=== PATIENT | female | born 1960 | race Caucasian/White ===

== ENCOUNTER → 2019-05-07 14:59 | Outpatient (CLI) | payer OTHER, SELFPAY ==
--- NOTE | ~2019-05-07 | CT_ITS ---
EXAMINATION: CT abdomen pelvis wo/w con DATE: 05/07/2019 15:51 INDICATION: Microscopic hematuria TECHNIQUE: Computed tomography (CT) of the abdomen and pelvis was performed without and with 130 cc O mnipaque 350 intravenous contrast. The dose-length product was 1127.86 mGy-cm. Automated exposure con trol and iterative reconstruction technique were employed. COMPARISON: CT dated 06/18/2014 FINDINGS: Lung bases are unremarkable. No significant pleural or pericardial effusion. Small hiatal h ernia. There is atherosclerosis. No evidence for aneurysm. No lymphadenopathy. Status post cholecystectomy. The liver, spleen, pancreas, adrenal glands and right kidney are unremar kable for noncontrast CT. There is a punctate 1-2 mm nonobstructing left renal stone. No definite ure teral stones or hydronephrosis. Ureters are normal in course and caliber. The bladder is unremarkable . Nonobstructive bowel gas pattern. No free air or free fluid. No abnormal pelvic masses or fluid colle ctions. Mild lumbar spondylosis. IMPRESSION: 1. Nonobstructing 1-2 mm left renal stone. 2: Small hiatal hernia. Reviewed, dictated and finalized at location A. [employer]
== END ==
DX: N20.0 Calculus of kidney (principal); K44.9 Diaphragmatic hernia without obstruction or gangrene; R31.21 Asymptomatic microscopic hematuria
CPT/HCPCS: 74178; Q9967

== ENCOUNTER → 2019-05-28 06:46 | Outpatient (CLI) | payer OTHER, SELFPAY ==
--- NOTE | ~2019-05-28 | MM_ITS ---
EXAMINATION: MM screening [facility] BI w soy HISTORY: Screening mammogram TECHNIQUE: Craniocaudal and mediolateral oblique 3-D tomosynthesis images were obtained and synthetic 2-D images were generated. CAD analysis was submitted and interpreted. COMPARISON: 04/11/2018, 04/02/2017, 02/09/2016 BREAST PARENCHYMAL COMPOSITION: There are scattered areas of fibroglandular density. FINDINGS: There is no evidence of suspicious mass, calcification, or architectural distortion to sugg est malignancy in either breast. There has been no suspicious interval change. IMPRESSION: 1. No mammographic evidence of malignancy. 2. Recommend routine screening mammography in one year. BI-RADS Category 1: Negative Reviewed, dictated and finalized at location A.
== END ==
PROVIDERS: Visit Provider Advanced Practice Midwife
DX: Z12.31 Encounter for screening mammogram for malignant neoplasm of breast (principal)
CPT/HCPCS: 77063; 77067

== ENCOUNTER → 2020-06-30 09:59 | Outpatient (CLI) | payer OTHER, SELFPAY ==
--- NOTE | ~2020-06-30 | MM_ITS ---
EXAMINATION: MM screening [facility] BI w soy HISTORY: Screening TECHNIQUE: Craniocaudal and mediolateral oblique 3-D tomosynthesis images were obtained and synthetic 2-D images were generated. CAD analysis was submitted and interpreted. COMPARISON: Comparison to multiple prior studies sequentially, with oldest reviewed study dated 12/17. BREAST PARENCHYMAL COMPOSITION: There are scattered areas of fibroglandular density. FINDINGS: There is no evidence of suspicious mass, calcification, or architectural distortion to sugg est malignancy in either breast. There has been no suspicious interval change. IMPRESSION: 1. No mammographic evidence of malignancy. 2. Recommend routine screening mammography in one year. BI-RADS Category 1: Negative Reviewed, dictated and finalized at location A.
== END ==
PROVIDERS: PCP Family Medicine; Visit Provider Nurse Practitioner Obstetrics & Gynecology
DX: Z12.31 Encounter for screening mammogram for malignant neoplasm of breast (principal)
CPT/HCPCS: 77063; 77067

== ENCOUNTER → 2021-11-30 11:55 | Outpatient (CLI) | payer OTHER, SELFPAY ==
--- NOTE | ~2021-11-30 | MM_ITS ---
EXAMINATION: MM screening [facility] BI w soy HISTORY: Screening mammogram TECHNIQUE: Craniocaudal and mediolateral oblique 3-D tomosynthesis images were obtained and synthetic 2-D images were generated. CAD analysis was submitted and interpreted. COMPARISON: 06/30/2020, 05/28/2019, 04/11/2018 bilateral screening mammogram examinations BREAST PARENCHYMAL COMPOSITION: There are scattered areas of fibroglandular density. FINDINGS: There are upper outer quadrant right breast microcalcifications, some linear. Diagnostic ri ght mammogram with magnification views is recommended, with ultrasound if appropriate at that time. Otherwise there is no evidence of suspicious mass, calcification, or architectural distortion to sugg est malignancy in either breast. There has been no other suspicious interval change. IMPRESSION: 1. Microcalcifications, upper outer right breast 2. Diagnostic right mammogram with magnification views is recommended, with ultrasound if required BI-RADS Category 0: Incomplete: Needs additional imaging evaluation. Reviewed, dictated and finalized at location A. IMPRESSION: 1. Microcalcifications, upper outer right breast 2. Diagnostic right mammogram with magnification views is recommended, with ult rasound if required BI-RADS Category 0: Incomplete: Needs additional imaging evaluation.
== END ==
PROVIDERS: PCP Family Medicine; Visit Provider Nurse Practitioner Obstetrics & Gynecology
DX: Z12.31 Encounter for screening mammogram for malignant neoplasm of breast (principal); R92.8 Other abnormal and inconclusive findings on diagnostic imaging of breast
CPT/HCPCS: 77063; 77067

== ENCOUNTER → 2021-12-20 07:47 | Outpatient (CLI) | payer OTHER, SELFPAY ==
--- NOTE | ~2021-12-20 | MM_ITS ---
EXAMINATION: MM diagnostic mammo unilat RT HISTORY: Right breast calcifications on screening mammogram TECHNIQUE: Magnification views of the right breast were performed. CAD analysis was submitted and int erpreted. COMPARISON: 11/30/2021, 06/30/2020 FINDINGS: There are fine pleomorphic calcifications in a somewhat segmental distribution in the middl e and posterior thirds of the upper outer quadrant of the right breast. No associated mass is identif ied. IMPRESSION: 1. Indeterminate right breast calcifications. 2. Stereotactic biopsy is recommended. BI-RADS category 4, suspicious findings. Reviewed, dictated and finalized at location B.
== END ==
PROVIDERS: PCP Family Medicine; Visit Provider Nurse Practitioner Obstetrics & Gynecology
DX: R92.8 Other abnormal and inconclusive findings on diagnostic imaging of breast (principal)
CPT/HCPCS: 77065